=== PATIENT | male | born 1965 | race Caucasian/White ===

== ENCOUNTER 2017-04-15 04:54 | Observation (INO) | payer OTHER ==
[2017-04-05 14:13] VITALS: BMI 28.0
--- NOTE | 2017-04-05 14:48 | PAT Medication Instructions ---
Service Date Apr 05, 2017. Current Home Medication List Atorvastatin (Lipitor), 20 MG PO QAM Cyanocobalamin (Vitamin B12 500MCG), 1,000 MCG PO QAM Ibuprofen (Motrin), 800 MG PO BID PRN for RN Multivitamin (Multivitamin), 1 TAB PO QAM [Neugenics], 3 TAB PO QAM Medication Instructions For Your Scheduled Surgery - Check with surgeon for instructions: Ibuprofen (Motrin), 800 MG PO BID PRN for RN - Hold the following medications the morning of surgery: Multivitamin (Multivitamin), 1 TAB PO QAM Cyanocobalamin (Vitamin B12 500MCG), 1,000 MCG PO QAM - Take the following medications the morning of surgery with a sip of water: Atorvastatin (Lipitor), 20 MG PO QAM [Neugenics], 3 TAB PO QAM If you have any questions please call us at [phone] or [phone] or [phone]
[2017-04-05 16:01] LABS: BASO % 0.2 %; BASO ABS # 0.01 K/uL (0-0.2); COMPLETE YES; EOS % 1.2 %; HEMATOCRIT 38.4 % (42-52); IG% 0.2 %; LYMPH % 36.3 %; LYMPH ABS # 2.08 K/uL (1.2-3.4); MEAN CELL VOLUME 84.6 fL (80-100); MEAN CORPUSCULAR HEMOGLOBIN 29.1 pg (25-34); MEAN CORPUSCULAR HGB CONC 34.4 g/dl (32-36); MEAN PLATELET VOLUME 11.3 fL (7.4-10.4); MONO % 5.9 %; NEUT % 56.2 %; PLATELET COUNT 181 K/uL (130-400); RED BLOOD COUNT 4.54 M/uL (4.7-6.1); WHITE BLOOD COUNT 5.73 K/uL (4.8-10.8)
[2017-04-05 16:03] LABS: URINE APPEARANCE CLEAR (CLEAR); URINE BILIRUBIN NEG (NEG); URINE COLOR YELLOW; URINE NITRITE NEG (NEG); URINE SPECIFIC GRAVITY 1.022 (1.000-1.030); UROBILINOGEN NEG (NEG)
[2017-04-05 16:08] LABS: MANUAL MICROSCOPIC REQUIRED? NO; REVIEW REQ? NO
[2017-04-05 16:26] LABS: BUN/CREATININE RATIO 13.4 (10-20); CREATININE 0.99 mg/dl (0.60-1.40); POTASSIUM 4.5 mmol/L (3.5-5.1)
[2017-04-05 16:44] LABS: CALCIUM 9.8 mg/dl (8.5-10.1)
--- NOTE | 2017-04-06 13:23 | HISTORY & PHYSICAL EXAMINATION ---
DATE OF ADMISSION: 04/13/2017 CHIEF COMPLAINT: Neck and left upper extremity pain. HISTORY OF PRESENT ILLNESS: The patient is a 51-year-old male known to our office from prior lumbar surgery, he did well following this, returned to work at [employer] and then developed recurring neck and left arm pain. He rates his pain as 8/10 on a daily basis. He describes it as aching and has intermittent worsening. He has been treated outpatient chiropractoric treatment and was referred from pain management for surgical evaluation. He denies right upper extremity symptoms. He denies myelopathic symptoms. He had an outpatient cervical MRI which demonstrated C5-C6 disc degeneration, disk herniation and spinal stenosis causing central and foraminal disease. There is no lacy myelomalacia. PAST MEDICAL HISTORY: Depression, high cholesterol, sleep apnea. PAST SURGICAL HISTORY: Microdiscectomy of the lumbar spine. MEDICATIONS: Gabapentin, ibuprofen, [place]. ALLERGIES: Denied. FAMILY HISTORY: Negative for history of stroke, hypertension, diabetes or cardiovascular disease. REVIEW OF SYSTEMS: Notable only for subjective weakness. Denied chest pain, shortness of breath, dyspnea on exertion, incontinence, fevers, chills, night sweats or other constitutional complaints. He does report paresthesias in the left upper extremity associated with the pain and symptoms. PHYSICAL EXAMINATION: The patient stands 6 feet tall, weighs 200 pounds. He answers questions normal, has normal affect. He has full cervical range of motion with negative Lhermitte's and negative Spurling's. He reports axial discomfort with range of motion but did not reproduce radicular pain. Neck reveals normal skin, no thyromegaly or lymphadenopathy. Cardiac evaluation reveals a regular rate and rhythm. Lungs clear to auscultation bilaterally. Extremity exam reveals palpable radial pulses in bilateral upper extremities, normal skin and full active range of motion. Neurologic exam reveals 5/5 strength, mini motor testing of both upper extremities in all motor groups. He has intact sensation to light touch in both upper extremities in all distributions. He had symmetric normal DTRs at biceps, triceps, brachioradialis. He had negative Lindsay's bilaterally. ASSESSMENT AND PLAN: The patient has a known C5-C6 disk herniation which is causing his central and foraminal stenosis. He has chronic recurring radicular symptoms associated neck pain. Given the chronicity and failure of conservative treatment, he desires surgery. Plan is to proceed with ACDF C5-C6. His questions were answered. Risks are reviewed.
[2017-04-15] VITALS (23 sets, daily range): BP systolic 112–143; BP diastolic 65–92; PULSE 63–89; TEMP 36.6–37.1; O2SAT 95–98; Ht 182.9 cm; Wt 93.8 kg
[~2017-04-15] VITALS: Ht 182.9 cm; Wt 93.8 kg
[~2017-04-15 04:54] MED LIST: ATOR-22 PO; CEFAZOLIN 2000 MG/60 ML D5W IV SCH; CYAN500T13 PO; CeleBREX 200 MG CAP PO SCH; IBUP-1428 PO; LACTATED RINGER'S 1000ML 1,000 ML IV SCH; MULT-506 PO; PREGABALIN 75 MG CAP PO SCH; [UNRECOGNIZED DRUG - OTHER] PO
[2017-04-15] MEDS ORDERED: CEFAZOLIN 2000 MG/60 ML D5W IV SCH (06:00)
[2017-04-15] MEDS ORDERED: CeleBREX 200 MG CAP PO SCH (06:00)
[2017-04-15] MEDS ORDERED: PREGABALIN 75 MG CAP PO SCH (06:00)
[2017-04-15] MEDS ORDERED: LACTATED RINGER'S 1000ML 1,000 ML IV SCH (06:00)
[2017-04-15] MEDS ORDERED: MIDAZOLAM HCL 1 MG/ML 2ML VIAL ONE (06:33)
[2017-04-15] MEDS ORDERED: FENTANYL CITRATE INJ 50 MCG/1 ML 2 ML VIAL ONE ×4 (06:33→09:19)
[2017-04-15] MEDS ORDERED: BACITRACIN 50000 UNIT VIAL ONE (06:53)
[2017-04-15] MEDS ORDERED: THROMBIN 5000 UNITS KIT ONE (06:53)
--- NOTE | 2017-04-15 07:51 | History & Physical Bridge Note ---
H&P Re-Evaluation Bridge Note: I have examined the patient, reviewed the History & Physical and in the interval since the performance of the History & Physical I have noted the following changes of clinical significance: No changes noted
[2017-04-15] MEDS ORDERED: HYDROmorphone INJ 2 MG/ML SYR/VIAL ONE ×2 (08:26→09:22)
[2017-04-15] MEDS ORDERED: EpHEDrine SULFATE INJ 50 MG/ML AMP IV PRN (08:30)
[2017-04-15] MEDS ORDERED: ATROPINE SULFATE 0.1 MG/ML 5ML SYR IV PRN (08:30)
[2017-04-15] MEDS ORDERED: PROMETHAZINE HCL INJ 12.5 MG in SODIUM CHLORIDE 0.9% 50ML 50 ML IV PRN (08:30)
[2017-04-15] MEDS ORDERED: ONDANSETRON INJ 2 MG/ML 2 ML VIAL IV PRN ×2 (08:30→09:30)
[2017-04-15] MEDS ORDERED: DEXAMETHASONE SOD INJ 4 MG/ML VIAL ONE (09:10)
[2017-04-15] MEDS ORDERED: ROCURONIUM BROMIDE 10 MG/ML 5 ML VIAL ONE (09:10)
[2017-04-15] MEDS ORDERED: LIDOCAINE HCL 2% 2 ML VIAL (20MG/ML) ONE (09:10)
[2017-04-15] MEDS ORDERED: ONDANSETRON INJ 2 MG/ML 2 ML VIAL ONE (09:10)
[2017-04-15] MEDS ORDERED: PROPOFOL IV EMULSION 10 MG/ML 20 ML VIAL IV ONE (09:10)
[2017-04-15] MEDS ORDERED: FLOSEAL HEMOSTATIC MATRIX 5ML TOP ONE (09:22)
[2017-04-15] MEDS ORDERED: NEOSTIGMINE METHYLSULFATE 1 MG/ML 10ML VIAL ONE (09:23)
[2017-04-15] MEDS ORDERED: GLYCOPYRROLATE INJ 0.2 MG/ML VIAL ONE (09:23)
--- NOTE | 2017-04-15 09:23 | [facility] Post Operative Brief Note ---
Immediate Operative Summary Operative Date Apr 15, 2017. Pre-Operative Diagnosis Central and Foraminal Stenosis C5-C6 Post-Operative Diagnosis Central and Foraminal Stenosis C5-C6 Procedure(s) Performed aCDF c5-[address] Lucio Configuration Management Architect Surgeon(s) Leonidas Manning Estimated Blood Loss minimal Findings ict Specimens None per surgeon
--- NOTE | 2017-04-15 09:27 | [facility] Operative Report ---
Operative Report Operative Date Apr 15, 2017. Pre-Operative Diagnosis Central and Foraminal Stenosis C5-C6 Procedure(s) Performed ACDF c5-[address] Lucio Tree Pruner Surgeon(s) Leonidas Manning Estimated Blood Loss minimal Findings see below Specimens None per surgeon Complication(s) None Description of Procedure PROCEDURE: After identification of the patient and operative level, patient was brought to the OR where they underwent induction of general anesthesia. Patient was then positioned supine on the Hung OR table with all bony prominences well padded. Care was taken to avoid pressure on all bony prominences. Arms tucked to the sides and well padded. Shoulders were taped distally. Anterior neck was sterilely prepped and draped in usual fashion. Antibiotics were administered. Timeout was performed. Level was confirmed. A transverse skin incision was made on the right side of the neck at the level of the cricoid cartilage. I divided the platysma in line with the incision and performed routine anterior cervical exposure, blunt dissection of medial sternocleidomastoid. I identified the presumptive disc spaces and marked it with a marker and fluoroscopy. I then mobilized the longus colli and placed a self-retaining anterior cervical retractor and placed [place] pins in the body of C5 on C6. After placement of the pins, I applied slight distraction across the pins and then did a complete discectomy at C5-6, took down the posterior osteophytes with a martin, removed the posterior annulus and the PLL, and did foraminotomies as necessary to decompress the foramina bilaterally. I passed the probe along the nerve roots, made sure they were free of compression, and decorticated the endplates at C5-6 with a high speed martin and determined graft size with trial sizers. I then tamped PEEK cage filled with local bone and DBM putty into position and checked position with fluoroscopy, released [place] distraction, applied bone wax over the holes and then inserted LDR blade plates through the cage into the vertebral body of C5- 6. After insertion of the blades, I obtained final x-rays, I irrigated, applied FloSeal for hemostasis, put a small round drain and closed in layered fashion. All sponge and needle counts were correct at the end of the case. I attest to the content of the Intraoperative Record and any orders documented therein. Any exceptions are noted below.
[2017-04-15] MEDS ORDERED: RACEPINEPHRINE 2.25% NEBU SOLN 0.5 ML VIAL INH PRN (09:30)
[2017-04-15] MEDS ORDERED: HYDROmorphone INJ 0.5 MG/0.5 ML SYR IV PRN (09:30)
[2017-04-15] MEDS ORDERED: LORAZEPAM 0.5 MG TAB PO PRN (09:30)
[2017-04-15] MEDS ORDERED: ACETAMINOPHEN IV 100 ML IV PRN (09:30)
[2017-04-15] MEDS ORDERED: NALOXONE HCL 0.4 MG/1 ML VIAL/CARP IV PRN (09:30)
[2017-04-15] MEDS ORDERED: DiphenhydrAMINE HCL 50 MG/ML VIAL IV PRN (09:30)
[2017-04-15] MEDS ORDERED: LORAZEPAM INJ 0.5 MG in SYRINGE 0.75 ML IV PRN (09:30)
[2017-04-15] MEDS ORDERED: DEXAMETHASONE INJ 8 MG in SYRINGE 0 ML IV PRN (09:30)
[2017-04-15] MEDS ORDERED: SCOPOLAMINE 1.5 MG TDSY TD ONE (09:49)
[2017-04-15] MEDS: FENTANYL CITRATE INJ 50 MCG/1 ML 2 ML VIAL IV PRN ×4 (09:50→10:22)
[2017-04-15] MEDS ORDERED: HYDROmorphone INJ 1 MG/ML SYR IV PRN (10:15)
--- NOTE | 2017-04-15 10:56 | Anesthesiology Progress Note ---
Anesthesia Post Op Note Date & Time Apr 15, 2017 at 10:56 Vital Signs Pain Intensity: 5 Vital Signs Past 12 Hours Date Time Temp Pulse Resp B/P (MAP) Pulse Ox O2 Delivery O2 Flow Rate FiO2 04/15/17 10:43 136/83 04/15/17 10:41 71 19 04/15/17 10:41 72 19 150/90 97 04/15/17 10:37 146/83 04/15/17 10:36 78 18 04/15/17 10:36 78 18 97 04/15/17 10:31 77 18 152/91 98 04/15/17 10:31 77 18 04/15/17 10:26 61 15 139/85 96 04/15/17 10:26 61 15 04/15/17 10:25 70 15 04/15/17 10:25 71 15 97 04/15/17 10:21 141/87 04/15/17 10:20 78 17 04/15/17 10:20 79 17 98 04/15/17 10:16 150/82 04/15/17 10:15 75 19 98 04/15/17 10:15 74 19 04/15/17 10:11 151/86 04/15/17 10:10 80 18 04/15/17 10:10 79 18 97 04/15/17 10:06 135/83 04/15/17 10:05 71 20 98 04/15/17 10:05 71 20 04/15/17 10:01 156/91 04/15/17 10:00 75 23 04/15/17 10:00 74 23 99 04/15/17 09:56 164/95 04/15/17 09:55 74 18 99 04/15/17 09:55 73 18 04/15/17 09:51 157/90 04/15/17 09:50 74 13 99 04/15/17 09:50 74 13 04/15/17 09:46 158/91 04/15/17 09:45 76 19 99 04/15/17 09:45 76 19 04/15/17 09:41 164/96 04/15/17 09:40 81 17 04/15/17 09:40 81 17 98 04/15/17 09:35 86 19 155/95 98 04/15/17 09:35 36.4 80 20 155/95 98 Mask 10 04/15/17 09:35 86 19 04/15/17 05:41 36.9 69 20 139/92 (108) 98 Room Air Notes Mental Status: alert / awake / arousable, participated in evaluation Pt Amnestic to Procedure: Yes Nausea / Vomiting: adequately controlled Pain: adequately controlled Airway Patency, RR, SpO2: stable & adequate BP & HR: stable & adequate Hydration State: stable & adequate Anesthetic Complications: no major complications apparent
--- NOTE | 2017-04-15 11:39 | DIAGNOSTIC IMAGING REPORT ---
INTRAOPERATIVE RADIOGRAPHS CLINICAL HISTORY: C5-C6 spinal fusion. Fluoroscopy time: 12 seconds FINDINGS: 2 spot fluoroscopic views of the cervical spine are presented. There is evidence of discectomy at C5-C6 with anterior fusion at this level. The orthopedic hardware appears intact. A surgical drain is noted on the second image. An endotracheal tube is in place. IMPRESSION: Intraoperative images from anterior C5-C6 spinal fusion as above. Electronically signed by: Avi Francois M.D. 04/15/2017 11:38 AM Dictated Date/Time: 04/15/2017 11:37 AM
[2017-04-15] MEDS: SODIUM CHLORIDE 0.9% 1000ML 1,000 ML IV SCH (11:47)
[2017-04-15] MEDS ORDERED: IV FLUIDS COMPLETED PRN (12:30)
[2017-04-15] MEDS: CEFAZOLIN IV 1,000 MG in DEXTROSE 5% 50ML 50 ML IV SCH ×2 (12:36→21:05)
[2017-04-15] MEDS: OXYCODONE HCL IR 5 MG TAB (IMMEDIATE RELEASE) PO PRN ×2 (13:18→18:17)
[2017-04-15] MEDS: CHECK SCOPOLAMINE PATCH PLACEMENT SCH (16:00)
[2017-04-15] MEDS: DEXAMETHASONE INJ 6 MG in SYRINGE 0 ML IV SCH (16:32)
[2017-04-16] VITALS (10 sets, daily range): BP systolic 111–125; BP diastolic 65–72; PULSE 58–80; TEMP 36.5–37; O2SAT 93–98
[2017-04-16] MEDS: OXYCODONE HCL IR 5 MG TAB (IMMEDIATE RELEASE) PO PRN ×3 (00:13→10:14)
[2017-04-16] MEDS: CHECK SCOPOLAMINE PATCH PLACEMENT SCH ×2 (00:14→08:15)
[2017-04-16] MEDS: DEXAMETHASONE INJ 6 MG in SYRINGE 0 ML IV SCH ×2 (00:14→08:17)
[2017-04-16] MEDS: SODIUM CHLORIDE 0.9% 1000ML 1,000 ML IV SCH (00:15)
[2017-04-16] MEDS: CEFAZOLIN IV 1,000 MG in DEXTROSE 5% 50ML 50 ML IV SCH (05:20)
[2017-04-16] MEDS ORDERED: NURSING VERBAL MED ORDER ONE (08:15)
[2017-04-16] MEDS ORDERED: COUGH DROP (SUGAR FREE) LOZ 24 LOZ/1 BOX ONE (08:16)
[2017-04-16] MEDS ORDERED: COUGH DROP (SUGAR FREE) LOZ 24 LOZ/1 BOX PO PRN (08:30)
[2017-04-16] MEDS ORDERED: RXC5 PO (09:20)
--- NOTE | 2017-04-16 09:21 | Discharge Instructions ---
Discharge Instructions Date of Service Apr 16, 2017. Admission Reason for Admission: Spinal Stenosis Discharge Discharge Diagnosis / Problem: same Discharge Goals Goal(s): Decrease discomfort Activity Recommendations Activity Limitations: per Instructions/Follow-up section . Instructions / Follow-Up Instructions / Follow-Up ACTIVITY RECOMMENDATIONS: SELF CARE INSTRUCTIONS AFTER CERVICAL FUSIONS 1. No smoking. Smoking drastically decreases the chance of a solid fusion. 2. No bending, lifting more than 5 pounds, or twisting (roll like a log when turning in bed). 3. You may shower 3 days after surgery. Thoroughly dry wound. Do not soak in the tub. 4. Cervical collar: Must be worn at all times including sleeping. You may remove the brace only to bath, eat and if you are sitting in a recliner. 5. Please walk as much as you can for exercise. Gradually increase the distance that you walk as your endurance increases. SPECIAL CARE INSTRUCTIONS: VERY IMPORTANT TO READ AND REVIEW A. Do not take any anti-inflammatory medications (i.e. Indocin, Advil, Aspirin, Naprosyn, Aleve, Motrin, etc.) as these may inhibit the chance of a solid fusion. Tylenol is okay to take. B. Your surgical incision has been closed with a cosmetic suture under the skin that will dissolve in about 6 weeks. In 14 days, you can use a pair of clean scissors and cut the suture that is left outside of the skin at the ends of your incision. C. Complications are uncommon, but please contact us if you have any signs or symptoms of: 1. wound infection (fever higher than 102.5 degrees F, redness, separation of wound, drainage, or increasing pain from the incision) 2. blood clots in legs (pain, swelling, redness and warmth in legs) 3. urinary tract infection (fever higher than 102.5 degrees, burning upon urination or increased frequency of urination) 4. nerve problems (inability to walk on your toes or heels, numbness, loss of bowel or bladder control) 5. any other symptoms that concern you. D. Please call the office at if you have any concerns or questions about your operation or recovery. MANAGING PAIN AFTER SPINAL SURGERY 1. Narcotic medication is intended for short-term use and will be provided for surgical pain. Surgical pain usually lasts for a period of 4-6 weeks. Narcotic medication includes Percocet, Vicodin, Darvocet, Tylenol #3 or Lortab. 2. Longer-term pain is more appropriately treated with non-narcotic medication such as Tylenol ES. 3. Muscle spasm is not appropriately treated with narcotics. Muscle relaxers such as Soma, Flexeril or Skelaxin can be used along with Tylenol ES. 4. Remember that we all live with some "aches and pains". This is not unusual or uncommon after an injury or as we get older. 5. We will provide appropriate medication within the normal guidelines of their prescribed use. We will also be very cautious and aware of potential abuse and extended duration of patients' medication needs. 6. Please allow 2-3 days to process refills. Prescriptions will not be mailed but must be picked up at the office. FOLLOW UP VISIT: Keep your scheduled follow-up appointment. Any questions, please call the office at . Current Hospital Diet Patient's current hospital diet: Clear Liquid Diet Discharge Diet Recommended Diet: Regular Diet Procedures Procedures Performed: C5-C6 Anterior Cervical Discectomy and Fusion, with Auto/allograft with LDR Pending Studies Studies pending at discharge: no Medical Emergencies . Who to Call and When: Medical Emergencies: If at any time you feel your situation is an emergency, please call 911 immediately. . Non-Emergent Contact Non-Emergency issues call your: Surgeon . "Provider Documentation" section prepared by Alexis Pettit. . VTE Core Measure Inpt VTE Proph given/why not?: SCD's [place] Drug Monitoring Program Search Results: patient reviewed within database, no issues identified ( reviewed by Reyna)
--- NOTE | 2017-04-16 09:22 | Discharge Summary ---
Orthopedic Discharge Summary Admission Date/Reason Apr 15, 2017 at 09:25 Spinal Stenosis. Discharge Date/Disposition Apr 16, 2017 Home Diagnosis Principal Diagnosis: same Procedure(s) Performed ACDF Medication Reconciliation New Medications: Oxycodone HCl (Oxycodone HCl) 5 Mg Tab 5-10 MG PO Q4H PRN for moderate-severe pain, #30 TAB Continued Medications: Atorvastatin (Lipitor) 20 Mg Tab 20 MG PO QAM, TAB Cyanocobalamin (Vitamin B12 500MCG) 500 Mcg Tab 1000 MCG PO QAM, TAB Ibuprofen (Motrin) 800 Mg Tab 800 MG PO BID PRN for RN, TAB Multivitamin (Multivitamin) Tab 1 TAB PO QAM, TAB [Neugenics] () 3 TAB PO QAM Admission Physical Exam As per Admitting History & Physical. Hospital Course The patient was admitted for elective cervical surgery which was tolerated well. They were stable on the floor, had pain controlled, mobilized well, and remained neurologically stable. d/c d to home in stable condition. Discharge Instructions Please refer to the electronic Patient Visit Report (Discharge Instructions) for additional information.
[2017-04-18] MEDS ORDERED: SCOPOLAMINE 1.5 MG TDSY TD SCH (09:00)
== END 2017-04-16 10:54 | disposition home or self-care (01) ==
LOC: C.ACU 04:54 → C.3E 09:25 → ENRESERV 10:26
PROVIDERS: ADMIT Orthopaedic Surgery Orthopaedic Surgery of the Spine; ATTEND Orthopaedic Surgery Orthopaedic Surgery of the Spine
DX: M48.02 Spinal stenosis, cervical region (principal); E78.00 Pure hypercholesterolemia, unspecified; G47.30 Sleep apnea, unspecified; F32.9 Major depressive disorder, single episode, unspecified; Z79.899 Other long term (current) drug therapy